=== PATIENT | female | born 1950 | race Caucasian/White ===

== ENCOUNTER 2018-12-15 13:57 | Outpatient (CLI) | payer MEDICARE, BC ==
--- NOTE | 2018-12-20 12:28 | Mammography Report ---
Reason: SCREENING MAMMO Procedure Date: 12/15/2018 Accession Number: [id number] / [id number] Procedure: BUCK - Screening Mammo w/Gaston CPT Code: FULL RESULT: EXAM: Screening Mammo w/Gaston DATE: 12/15/2018 2:34 PM CLINICAL HISTORY: Routine screening TECHNIQUE: (B) - Bilateral CC and MLO views were obtained. COMPARISON: None available PARENCHYMAL PATTERN: (A) - The breasts demonstrate scattered fibroglandular densities bilaterally. FINDINGS: There are no suspicious masses, calcifications, skin thickening, or areas of distortion. IMPRESSION: Negative examination. BI-RADS category 1. RECOMMENDATION: (ANNUAL) - Recommend routine annual screening mammography. BI-RADS CATEGORY: (1) - Negative. STANDARD QUALIFYING STATEMENTS: 1. This examination was not reviewed with the aid of Computer-Aided Detection (CAD). 2. A negative or benign imaging report should not preclude biopsy if clinically suspicious findings are present. 3. Dense breasts may obscure an underlying neoplasm. 4. This examination was reviewed with the aid of 3D breast imaging (tomosynthesis).
== END 2018-12-15 13:58 | disposition home or self-care (01) ==
LOC: DI 13:57
PROVIDERS: ATTEND Physician Assistant
DX: Z12.31 Encounter for screening mammogram for malignant neoplasm of breast (principal)
CPT/HCPCS: 77063; 77067

== ENCOUNTER 2020-04-11 08:52 | Outpatient (CLI) | payer MEDICARE, BC | END 2020-04-11 08:53 | disposition home or self-care (01) | LOC: NS 08:52 | PROVIDERS: ATTEND Nurse Practitioner Family | DX: Z71.3 Dietary counseling and surveillance (principal); K58.9 Irritable bowel syndrome, unspecified | CPT/HCPCS: 97802 ==

== ENCOUNTER 2020-09-16 09:17 | Outpatient (CLI) | payer MEDICARE, BC ==
--- NOTE | 2020-09-16 10:06 | XRAY Report ---
PROCEDURE: Shoulder 2 View LT INDICATIONS: PX IN LEFT SHOULDER JOINT TECHNIQUE: 2 views of the shoulder were acquired. COMPARISON: None. FINDINGS: Bones: No fractures or dislocations. Mild acromioclavicular joint and glenohumeral joint osteophyti c changes are seen. No suspicious bony lesions. Visualized ribs appear intact. Soft tissues: No suspicious soft tissue calcifications. IMPRESSION: Mild left shoulder joint osteoarthritis. No fracture or dislocation. Reviewed by: Demetrio Dotson MD on 09/16/2020 10:04 AM [facility] Approved by: Demetrio Dotson MD on 09/16/2020 10:04 AM [facility] Station ID: [id number]
== END 2020-09-16 09:18 | disposition home or self-care (01) ==
LOC: DI.S 09:17
PROVIDERS: ATTEND Family Medicine
DX: M19.012 Primary osteoarthritis, left shoulder (principal)

== ENCOUNTER 2020-10-03 14:36 | Outpatient (CLI) | payer MEDICARE, BC ==
--- NOTE | 2020-10-04 05:14 | DEXA Report ---
PROCEDURE: Dexa Spine and/or Hip INDICATIONS: POST MENOPAUSAL TECHNIQUE: Dual energy x-ray absorptiometry (DXA) was performed on a [employer] System. Regions measur ed are the AP Spine, femoral neck, and if needed forearm. COMPARISON: None. FINDINGS: Lumbar Spine: Bone Mineral Density 1.142 g/cm/cm,T score -0.3, normal bone density Left Femoral Neck: Bone Mineral Density 0.965 g/cm/cm, T score -0.3, normal bone density (T score greater or equal to -1.0: NORMAL) (T score from -1.1 to -2.4: OSTEOPENIA) (T score less than or equal to -2.5 to: OSTEOPOROSIS) Impression: Normal bone mineral density. Patients with diagnosis of osteoporosis or osteopenia should have regular bone mineral density assess ment. For those eligible for Medicare, routine testing is allowed once every 2 years. Testing frequ ency can be increased for patients who have rapidly progressing disease or for those who are receivin g medical therapy to restore bone mass. Reviewed by: Vishal Beasley MD on 10/03/2020 5:22 PM PST Approved by: Vishal Beasley MD on 10/03/2020 5:22 PM PST Station ID: [id number]
== END 2020-10-03 14:37 | disposition home or self-care (01) ==
LOC: DI 14:36
PROVIDERS: ATTEND Family Medicine
DX: Z78.0 Asymptomatic menopausal state (principal)

== ENCOUNTER 2020-10-03 14:38 | Outpatient (CLI) | payer MEDICARE, BC ==
--- NOTE | 2020-10-07 11:50 | Mammography Report ---
BILATERAL DIGITAL SCREENING MAMMOGRAM 3D/2D: 10/03/2020 CLINICAL: Routine screening. Family history of breast cancer. Comparison is made to exams dated: 12/15/2018 mammogram - [facility] and 11/03/2016 mammogram - [facility]. The tissue of both breasts is heterogeneously dense. This may lower the sensitivity of mammography. No significant masses, calcifications, or other findings are seen in either breast. There has been no significant interval change. IMPRESSION: NEGATIVE There is no mammographic evidence of malignancy. A 1 year screening mammogram is recommended. This exam was interpreted at Station ID: [id number]. NOTE: For mammograms, a report in lay terms will be sent to the patient. Approximately 15% of breast malignancies will not be visualized mammographically. In the management of a palpable breast mass, a negative mammogram must not discourage biopsy of a clinically suspicious lesion. Electronically Signed By: Wilton Alcala M.D. [email or web address]/penrad:10/03/2020 15:20:01 ACR BI-RADS Category 1: Negative 3341F PARENCHYMAL PATTERN: (D) - The breast(s) demonstrate(s) heterogeneously dense fibroglandular edie sotelo. BI-RADS CATEGORY: (1) - 1 RECOMMENDATION: (ANNUAL) - Recommend routine annual screening mammography. [id number] 1 year screening LATERALITY: (B)
== END 2020-10-03 14:39 | disposition home or self-care (01) ==
LOC: DI 14:38
PROVIDERS: ATTEND Family Medicine
DX: Z12.31 Encounter for screening mammogram for malignant neoplasm of breast (principal); Z80.3 Family history of malignant neoplasm of breast

== ENCOUNTER 2022-11-11 14:03 | Outpatient (CLI) | payer MEDICARE, BC ==
--- NOTE | 2022-11-12 09:16 | Mammography Report ---
BILATERAL DIGITAL SCREENING MAMMOGRAM 3D/2D WITH EXAGGERATED CC: 11/11/2022 CLINICAL: Routine screening. Family history of breast cancer. Comparison is made to exams dated: 10/03/2020 mammogram and 12/15/2018 mammogram - [facility]. Both breasts are heterogeneously dense, which may obscure small masses (category c / 51-75% glandular tissue). No significant masses, calcifications, or other findings are seen in either breast. There has been no significant interval change. IMPRESSION: NEGATIVE There is no mammographic evidence of malignancy. A 1 year screening mammogram is recommended. Based on the Tyrer Cuzick model (a risk assessment model) the patients lifetime risk is 16.0% and he r 10 year risk is 12.1%. According to the ACR, ACS, and NCCN guidelines, an annual breast MRI exam al mychal with mammogram is recommended if the patients lifetime risk is 20% or greater. This exam was interpreted at Station ID: [id number]. NOTE: For mammograms, a report in lay terms will be sent to the patient. Approximately 15% of breast malignancies will not be visualized mammographically. In the management of a palpable breast mass, a negative mammogram must not discourage biopsy of a clinically suspicious lesion. Electronically Signed By: Vishal mitchell/vishal:11/11/2022 16:09:44 letter sent: No_Letter ACR BI-RADS Category 1: Negative 3341F PARENCHYMAL PATTERN: (D) - The breast(s) demonstrate(s) heterogeneously dense fibroglandular edie sotelo. BI-RADS CATEGORY: (1) - 1 Mammogram [id number] 1 year screening LATERALITY: (B)
== END 2022-11-11 14:04 | disposition home or self-care (01) ==
LOC: DI.S 14:03
DX: Z12.31 Encounter for screening mammogram for malignant neoplasm of breast (principal); Z80.3 Family history of malignant neoplasm of breast

== ENCOUNTER 2023-06-17 11:40 | Outpatient (CLI) | payer MEDICARE, BC ==
[2023-06-17 15:15] LABS: BASOPHILS % (AUTO) 0.6 %; EOSINOPHILS % (AUTO) 0.3 %; HCT - HEMATOCRIT 41.6 % (37.0-47.0); HGB - HEMOGLOBIN 13.8 g/dL (12.0-16.0); LYMPHOCYTES # (AUTO) 1.3 10^3/uL (1.5-3.5); LYMPHOCYTES % (AUTO) 20.5 %; MEAN CORPUSCULAR HEMOGLOBIN 32.2 pg (27.0-31.0); MEAN CORPUSCULAR HGB CONC 33.2 g/dL (32.0-36.0); MEAN CORPUSCULAR VOLUME 97.2 fL (81.0-99.0); MEAN PLATELET VOLUME 10.5 fL (7.9-10.8); MONOCYTES # (AUTO) 0.6 10^3/uL (0.0-1.0); MONOCYTES % (AUTO) 8.8 %; NEUTROPHILS # (AUTO) 4.5 10^3/uL (1.5-6.6); NEUTROPHILS % (AUTO) 69.6 %; PLT - PLATELET COUNT 336 10^3/uL (130-450); RED BLOOD COUNT 4.28 10^6/uL (4.20-5.40); RED CELL DISTRIBUTION WIDTH 13.1 % (12.0-15.0); WHITE BLOOD COUNT 6.4 x10^3/uL (4.8-10.8)
[2023-06-17 15:40] LABS: ALBUMIN/GLOBULIN RATIO 1.7 (1.0-2.2); BILIRUBIN,TOTAL 0.5 mg/dL (0.2-1.0); CALCIUM 10.5 mg/dL (8.5-10.3); MAGNESIUM 2.2 mg/dL (1.7-2.3); POTASSIUM 4.2 mmol/L (3.5-4.5); TOTAL PROTEIN 7.9 g/dL (6.4-8.9)
[2023-06-17 15:53] LABS: THYROID STIMULATING HORMONE 4.45 uIU/mL (0.34-5.60)
== END 2023-06-17 11:41 | disposition home or self-care (01) ==
LOC: LAB.S 11:40
PROVIDERS: ATTEND Physician Assistant Medical
DX: R00.0 Tachycardia, unspecified (principal)
CPT/HCPCS: 36415; 80053; 83735; 84443; 85025

== ENCOUNTER 2023-09-04 07:35 | Outpatient (CLI) | payer MEDICARE, BC ==
--- NOTE | 2023-09-04 12:57 | Ultrasound Report ---
PROCEDURE: Abdomen Limited INDICATIONS: ELEVATED LIVER ENZYMES TECHNIQUE: Real-time focused scanning was performed of the abdomen, with image documentation. COMPARISONS: None. FINDINGS: Liver: Liver is normal size with mildly heterogeneous echotexture. Gallbladder: Unremarkable. Biliary ducts: Intrahepatic bile ducts are non-dilated. Extrahepatic bile duct caliber measures 3 m m. Normal is 6-7 mm or less in diameter, or 10 mm or less post-cholecystectomy. Pancreas: Visualized portions of the pancreas are sonographically normal. Right kidney: Normal in size and echotexture. Right kidney measures 9.3 cm long. No hydronephrosis o r nephrolithiasis. No solid masses. No complex renal cystic lesions which require follow-up. Aorta: Visualized aorta is normal in caliber at less than 3 cm. IVC: Intrahepatic inferior vena cava is patent. Miscellaneous: No free abdominal fluid. IMPRESSION: Unremarkable abdominal ultrasound. Reviewed by: Kenneth Villatoro MD on 09/04/2023 11:56 AM [facility] Approved by: Kenneth Villatoro MD on 09/04/2023 11:56 AM [facility] Station ID: [id number]
== END 2023-09-04 07:36 | disposition home or self-care (01) ==
LOC: DI 07:35
PROVIDERS: ATTEND Nurse Practitioner Family
DX: R74.01 Elevation of levels of liver transaminase levels (principal)

== ENCOUNTER 2023-10-07 07:53 | Day surgery (SDC) | payer MEDICARE, BC ==
[2023-10-07] MEDS: LACTATED RINGERS 1,000 ML IV ONE (08:05)
[2023-10-07] MEDS: KETOROLAC 0.45% OPHTH DROPS ONE (08:06)
[2023-10-07] MEDS: PHENYLEPHRINE 2.5% OPHTH 2 ML DROPS ONE (08:07)
[2023-10-07] MEDS: PROPARACAINE 0.5% OPHTH DROPS 15 ML ONE (08:07)
[2023-10-07] MEDS ORDERED: MIDAZOLAM 2 MG/2 ML VIAL ONE ×2 (09:20→10:15)
[2023-10-07] MEDS ORDERED: fentaNYL 100 MCG/2 ML VIAL ONE (09:21)
--- NOTE | 2023-10-07 09:26 | ANESTHESIA ---
Pre-Anesthesia VS, & Labs - Diagnosis LEFT EYE CATARACT - Procedure PE IOL OS Vital Signs: Temp Pulse Resp BP Pulse Ox O2 Flow Rate 36.3 C L 60 16 120/71 100 0 10/07/23 08:05 10/07/23 08:05 10/07/23 08:05 10/07/23 08:05 10/07/23 08:05 10/07/23 08:05 Height: 5 ft 5 in Weight (kg): 55 kg Body Mass Index: 20.1 BMI Classification: Normal - NPO >8 hours Last Fluid Intake: 06 - Is Patient ?: No Home Medications and Allergies Home Medications: Ambulatory Orders Latanoprost 0.005% Ophth Drops [Xalatan Ophth Drops] 1 drops OPTH QPM 10/06/23 PARoxetine [Paxil] 10 mg PO DAILY 10/06/23 Latanoprost 0.005% Ophth Drops [Xalatan Ophth Drops] 1 drops OPTH QPM 10/06/23 PARoxetine [Paxil] 10 mg PO DAILY 10/06/23 Allergies/Adverse Reactions: Allergies Allergy/AdvReac Type Severity Reaction Status Date / Time No Known Drug Allergies Allergy Verified 10/07/23 08:27 Anes History & Medical History - Anesthetic History Anesthesia Complications: reports: No previous complications Family history of Anesthesia Complications: Denies Family history of Malignant Hyperthermia: Denies (DENIES CP/SOB) - Medical History Cardiovascular: reports: High cholesterol, Murmur (DOESNT KNOW TYPE, DOES NOT LIMIT ACTIVITY) Pulmonary: reports: None Gastrointestinal: reports: None Urinary: reports: Other Musculoskeletal: reports: Osteoarthritis Psychosocial: reports: No issues indicated - Surgical History Eyes Ears Nose Throat (EENT): reports: Tonsil/Adenoidectomy, Other Gynecologic: reports: section Results - EKG Results EKG Comparison: Reviewed EKG Exam General: Alert Dental: WNL Mouth Openin Fingerbreadth Neck Mobility: Reduced Mallampati classification: II Thyromental Distance: 4-6 cm Cardiovascular: Regular rate Plan Anesthesia Type: MAC Consent for Procedure(s) Verified and Reviewed: Yes Code Status: Attempt Resuscitation ASA classification: 2-Mild systemic disease Is this case an emergency?: No
[2023-10-07] MEDS ORDERED: EPINEPHrine 1 MG/ML AMP ONE (09:33)
[2023-10-07] MEDS ORDERED: TRIAMCIN/MOXIFLOX OPHTHALMIC 0.6 ML VIAL IO ONE (09:33)
[2023-10-07] MEDS ORDERED: TIMOLOL 0.5% OPHTH DROPS ONE (09:34)
[2023-10-07] MEDS ORDERED: BSS/LIDOCAINE/EPINEPHRINE 1 ML VIAL ONE (09:34)
[2023-10-07] MEDS ORDERED: BRIMONIDINE 0.2% OPHTH DROPS 5 ML ONE (09:34)
[2023-10-07] MEDS: BRIMONIDINE 0.2% OPHTH DROPS 5 ML OPTH ONE (09:40)
[2023-10-07] MEDS: TIMOLOL 0.5% OPHTH DROPS OPTH ONE (09:41)
[2023-10-07] MEDS: EPINEPHrine 1 MG/ML AMP IR ONE (09:41)
[2023-10-07] MEDS: BSS/LIDOCAINE/EPINEPHRINE 1 ML SYRINGE IO ONE (09:41)
[2023-10-07] MEDS: TRIAMCIN/MOXIFLOX OPHTHALMIC 0.6 ML VIAL IO ONE (09:42)
[2023-10-07] MEDS: PROPARACAINE 0.5% OPHTH DROPS 15 ML EACHEYE ONE (09:43)
[2023-10-07] MEDS: VANCOMYCIN OPHTH (TOPICAL) 10 MG/ML SYRINGE TOP ONE (09:43)
[2023-10-07] MEDS: LACTATED RINGERS 500 ML IV ONE ×4 (10:36→10:40)
[2023-10-07 10:51] VITALS: BP 121/74; O2SAT 98
--- NOTE | 2023-10-07 10:59 | OPERATIVE REPORT ---
Operative Report - Other Other Information/Narrative: Date of Surgery: 10/07/23 Preop Dx: Visually significant cataract left eye. This was the first cataract surgery. Postop Dx: Same Procedure: Phacoemulsification with posterior chamber toric intraocular lens implant left eye Surgeon: Dr. Nabeel Hoffman Anesthesia: Monitored anesthesia care Complications: None Operative Indications: This is a 72-year-old F with progressive vision loss in the left eye due to 2-3+ nuclear sclerotic cataract. Best corrected visual acuity was 20/30 with glare to 20/60 vision in the left eye. Indications for surgery were: - Overall decrease in vision - Difficulty seeing words, closed captions, or game scores on TV - Difficulty seeing street signs - Difficulty driving in low light or at night - Difficulty driving at night because of headlights from other vehicles - Difficulty with glare or bright lights in any situation The patient was consented at length concerning the risks and benefits of cataract surgery after which the patient expressed a desire to proceed with surgery. Operative Procedure: The patients cornea was marked in the pre-surgical area to indicate the axis for the toric intraocular lens. The patient was taken into OR#3 and placed under monitored anesthesia care. A surgical time-out was conducted confirming correct patient, correct procedure, and correct surgical site. The patient was given topical anesthesia and then prepped and draped in the usual sterile fashion. The eye was entered at the 6 and 3 oclock positions. Intracameral Shugarcaine was injected into the anterior chamber followed by a dispersive viscoelastic. A continuous-tear curvilinear capsulorhexis was performed. The nucleus was hydrodissected and phacoemulsified. The cortex was evacuated using automated infusion and aspiration. A cohesive viscoelastic was injected into the capsular bag and a 23.0 diopter toric intraocular lens was inserted into the bag and rotated to axis 152. Infusion and aspiration were used to evacuate the viscoelastic materials from the eye and the IOL was verified to remain on axis. The wounds were hydrated and the eye inflated to physiologic pressure using balanced salt solution. However, the phaco wound two of the 16 RK wounds were clearly leaking (they seemed to split open upon pressurizing the globe) so one 10-0 nylon suture was placed across the phaco wound radially, three sutures were placed across the RK wound above the phaco wound, and two sutures placed across the RK inferior to the phaco wound. Approximately 0.25ml of a mixture of triamcinolone and moxifloxacin was injected trans-sclerally into the vitreous in the inferotemporal quadrant using a 30 gauge cannula. An additional 0.25ml of a mixture of triamcinolone and mo xifloxacin was injected subconjunctivally in the superior quadrant for infection and inflammation prophylaxis. Wound integrity was checked with Weck-Randa sponges and the IOL axis was once again verified to be on the correct axis. The patient was taken from the operating room in good condition and given post-op instructions.
--- NOTE | 2023-10-07 11:18 | ANESTHESIA POST OP EVALUATION ---
Anesthesia Post Eval - Post Anesthesia Eval Vitals: Last Vital Signs Temp 36.4 C L 10/07/23 10:50 Pulse 68 10/07/23 10:50 Resp 14 10/07/23 10:50 BP 121/74 10/07/23 10:50 Pulse Ox 98 10/07/23 10:50 O2 Flow Rate 0 10/07/23 08:05 CV Function Including HR & BP: Stable Pain Control: Satisfactory Nausea & Vomiting: Negative Mental Status: Baseline Respiratory Status: Airway Patent Hydration Status: Satisfactory Anesthesia Complications: None
== END 2023-10-07 07:54 | disposition home or self-care (01) ==
LOC: SDS 07:53
PROVIDERS: ATTEND Ophthalmology
DX: H25.812 Combined forms of age-related cataract, left eye (principal); E78.00 Pure hypercholesterolemia, unspecified
CPT/HCPCS: 66984; A9270; J3490; J7120; V2632

== ENCOUNTER 2023-12-16 06:38 | Day surgery (SDC) | payer MEDICARE, BC ==
[2023-12-16] MEDS: LACTATED RINGERS 1,000 ML IV ONE (06:58)
[2023-12-16] MEDS ORDERED: EPINEPHrine 1 MG/ML AMP ONE (07:01)
[2023-12-16] MEDS ORDERED: TIMOLOL 0.5% OPHTH DROPS ONE (07:02)
[2023-12-16] MEDS ORDERED: BSS/LIDOCAINE/EPINEPHRINE 1 ML VIAL ONE (07:02)
[2023-12-16] MEDS ORDERED: BRIMONIDINE 0.2% OPHTH DROPS 5 ML ONE (07:02)
[2023-12-16] MEDS ORDERED: TRIAMCIN/MOXIFLOX OPHTHALMIC 0.6 ML VIAL IO ONE (07:02)
[2023-12-16] MEDS ORDERED: ACETYLCHOLINE 20 MG/2 ML KIT IO ONE (07:04)
[2023-12-16] MEDS ORDERED: MIDAZOLAM 2 MG/2 ML VIAL ONE (07:06)
--- NOTE | 2023-12-16 07:06 | ANESTHESIA ---
Pre-Anesthesia VS, & Labs - Diagnosis R senile combined cataract - Procedure R extraction cataract Vital Signs: Temp Pulse Resp BP Pulse Ox O2 Flow Rate 36.1 C L 59 L 12 123/63 100 12/16/23 06:58 12/16/23 06:58 12/16/23 06:58 12/16/23 06:58 12/16/23 06:58 Height: 5 ft 5 in Weight (kg): 53.5 kg Body Mass Index: 19.6 BMI Classification: Normal - Is Patient ?: No - Lab Results Lab results reviewed: No Home Medications and Allergies Latanoprost 0.005% Ophth Drops [Xalatan Ophth Drops] 1 drops OPTH QPM 10/06/23 PARoxetine [Paxil] 10 mg PO DAILY 10/06/23 Allergies/Adverse Reactions: Allergies Allergy/AdvReac Type Severity Reaction Status Date / Time No Known Drug Allergies Allergy Verified 10/07/23 08:27 Anes History & Medical History - Anesthetic History Anesthesia Complications: reports: No previous complications Family history of Anesthesia Complications: Denies Family history of Malignant Hyperthermia: Denies - Medical History Cardiovascular: reports: High cholesterol, Murmur Pulmonary: reports: None Gastrointestinal: reports: None Urinary: reports: Other Musculoskeletal: reports: Osteoarthritis - Surgical History Eyes Ears Nose Throat (EENT): reports: Tonsil/Adenoidectomy, Other Gynecologic: reports: section Exam General: Alert, Oriented x3, Cooperative Dental: WNL Mouth Openin Fingerbreadth Neck Mobility: Normal Mallampati classification: II Thyromental Distance: 4-6 cm Respiratory: Lungs clear, Normal breath sounds, No respiratory distress Cardiovascular: Regular rate Plan Anesthesia Type: MAC Consent for Procedure(s) Verified and Reviewed: Yes Code Status: Attempt Resuscitation ASA classification: 2-Mild systemic disease Is this case an emergency?: No
[2023-12-16] MEDS: PHENYLEPHRINE 2.5% OPHTH 2 ML DROPS ONE (07:07)
[2023-12-16] MEDS ORDERED: fentaNYL 100 MCG/2 ML VIAL ONE (07:07)
[2023-12-16] MEDS ORDERED: LIDOCAINE-PF 2% 10 ML AMP SUBQ ONE (07:07)
[2023-12-16] MEDS: PROPARACAINE 0.5% OPHTH DROPS 15 ML ONE (07:07)
[2023-12-16] MEDS: KETOROLAC 0.45% OPHTH DROPS ONE (07:07)
[2023-12-16] MEDS: BRIMONIDINE 0.2% OPHTH DROPS 5 ML OPTH ONE (07:17)
[2023-12-16] MEDS: TIMOLOL 0.5% OPHTH DROPS OPTH ONE (07:17)
[2023-12-16] MEDS: EPINEPHrine 1 MG/ML AMP IR ONE (07:17)
[2023-12-16] MEDS: BSS/LIDOCAINE/EPINEPHRINE 1 ML SYRINGE IO ONE (07:18)
[2023-12-16] MEDS: PROPARACAINE 0.5% OPHTH DROPS 15 ML EACHEYE ONE (07:18)
[2023-12-16] MEDS: TRIAMCIN/MOXIFLOX OPHTHALMIC 0.6 ML VIAL IO ONE (07:18)
[2023-12-16] MEDS: VANCOMYCIN OPHTH (TOPICAL) 10 MG/ML SYRINGE TOP ONE (07:18)
[2023-12-16] MEDS: LACTATED RINGERS 550 ML IV ONE ×2 (07:52→08:21)
--- NOTE | 2023-12-16 08:01 | OPERATIVE REPORT ---
Operative Report - Other Other Information/Narrative: Date of Surgery: 12/16/23 Preop Dx: Visually significant cataract right eye. Cataract surgery was performed in the left eye on . Postop Dx: Same Procedure: Phacoemulsification with posterior chamber toric intraocular lens implant right eye Surgeon: Dr. Nabeel Hoffman Anesthesia: Monitored anesthesia care Complications: None Operative Indications: This is a 73-year-old F with progressive vision loss in the right eye due to 2+ nuclear sclerotic, 2-3+ posterior subcapsular, and vacuolar cataract. Best corrected visual acuity was 20/40 with glare to light perception vision in the right eye. Indications for surgery were: - Overall decrease in vision - Difficulty seeing words on a computer screen - Difficulty reading - Difficulty seeing words, closed captions, or game scores on TV - Difficulty driving in low light or at night - Difficulty driving at night because of headlights from other vehicles - Difficulty with glare or bright lights in any situation The patient was consented at length concerning the risks and benefits of cataract surgery after which the patient expressed a desire to proceed with surgery. Operative Procedure: The patients cornea was marked in the pre-surgical area to indicate the axis for the toric intraocular lens. The patient was taken into OR#3 and placed under monitored anesthesia care. A surgical time-out was conducted confirming correct patient, correct procedure, and correct surgical site. The patient was given topical anesthesia and then prepped and draped in the usual sterile fashion. The eye was entered at the 6 and 3 oclock positions. Intracameral Shugarcaine was injected into the anterior chamber followed by a dispersive viscoelastic. A continuous-tear curvilinear capsulorhexis was performed. The nucleus was hydrodissected and phacoemulsified. The cortex was evacuated using automated infusion and aspiration. A cohesive viscoelastic was injected into the capsular bag and a 23.5 diopter toric intraocular lens was inserted into the bag and rotated to axis 029. Infusion and aspiration were used to evacuate the viscoelastic materials from the eye and the IOL was verified to remain on axis. The wounds were hydrated and the eye inflated to physiologic pressure using balanced salt solution. Approximately 0.25ml of a mixture of triamcinolone and moxifloxacin was injected trans- sclerally into the vitreous in the inferotemporal quadrant using a 30 gauge cannula. An additional 0.25ml of a mixture of triamcinolone and moxifloxacin was injected subconjunctivally in the superior quadrant for infection and inflammation prophylaxis. Wound integrity was checked with Weck-Randa sponges and the IOL axis was once again verified to be on the correct axis. The patient was taken from the operating room in good condition and given post-op instructions.
[2023-12-16 08:02] VITALS: O2SAT 97
[2023-12-16 08:12] VITALS: BP 110/52
--- NOTE | 2023-12-16 08:15 | ANESTHESIA POST OP EVALUATION ---
Anesthesia Post Eval - Post Anesthesia Eval Vitals: Last Vital Signs Temp 36.7 C 12/16/23 08:08 Pulse 69 12/16/23 08:08 Resp 17 12/16/23 08:08 BP 110/52 L 12/16/23 08:08 Pulse Ox 97 12/16/23 08:08 O2 Flow Rate CV Function Including HR & BP: Stable Pain Control: Satisfactory Nausea & Vomiting: Negative Mental Status: Baseline Respiratory Status: Airway Patent Hydration Status: Satisfactory Anesthesia Complications: None
== END 2023-12-16 06:39 | disposition home or self-care (01) ==
LOC: SDS 06:38
PROVIDERS: ATTEND Ophthalmology
DX: H25.11 Age-related nuclear cataract, right eye (principal)
CPT/HCPCS: 66984; A9270; J3490; J7120; V2632; V2787

== ENCOUNTER 2024-01-26 14:31 | Outpatient (CLI) | payer MEDICARE, BC ==
--- NOTE | 2024-01-27 07:36 | XRAY Report ---
PROCEDURE: Chest 2V INDICATIONS: CHEST PAIN TECHNIQUE: 2 views of the chest were acquired. COMPARISON: None. FINDINGS: Surgical changes and devices: None. Lungs and pleura: No pleural effusions or pneumothorax. Lungs are clear. Mediastinum: Mediastinal contours appear normal. Heart size is normal. Bones and chest wall: No suspicious bony lesions. Overlying soft tissues appear unremarkable. IMPRESSION: No acute cardiopulmonary process. Reviewed by: Heidy Lay MD, PhD on 01/27/2024 7:35 AM PDT Approved by: Heidy Lay MD, PhD on 01/27/2024 7:35 AM PDT Station ID: [id number]
== END 2024-01-26 14:32 | disposition home or self-care (01) ==
LOC: DI.S 14:31
PROVIDERS: ATTEND Registered Nurse
DX: R07.9 Chest pain, unspecified (principal)